=== PATIENT | male | born 1975 | race Caucasian/White ===

== ENCOUNTER 2016-11-18 16:58 | Emergency (ER) | payer MEDICAID, OTHER ==
[2016-11-18 17:16] VITALS: BP 151/88
--- NOTE | 2016-11-18 17:42 | UC ---
Cardiac HPI - History of Current Complaint Chief Complaint: UCChestPain Stated Complaint: CHEST PAIN Time Seen by Provider: 11/18/16 17:35 - Allergy/Home Medications Allergies/Adverse Reactions: Allergies Allergy/AdvReac Type Severity Reaction Status Date / Time Menthol Allergy Intermediate Swelling Verified 01/30/15 20:19 PMH/Surg Hx/FS Hx/Imm Hx Endocrine History Of: Denies: Diabetes, Thyroid Disease Cardiovascular History Of: Denies: Cardiac Disorders, Hypertension Respiratory History Of: Reports: Bronchitis Denies: COPD, Asthma GI/ History Of: Denies: Ulcer - Surgical History Surgical History: Yes Surgery Procedure, Year, and Place: APPENDECTOMY - Social History Alcohol Use: Rare Substance Use Type: None Substance Use Comment - Amount & Last Used: 01/29/15 Smoking Status (MU): Heavy Every Day Tobacco Smoker Type: Cigarettes Physical Exam Vital Signs: Initial Vital Signs Temp 98.7 F 11/18/16 17:11 Pulse 93 11/18/16 17:11 Resp 18 11/18/16 17:11 BP 151/88 11/18/16 17:11 Pulse Ox 97 11/18/16 17:11
--- NOTE | 2016-11-18 17:47 | UC ---
Abdominal Pain Male HPI - HPI Summary HPI Summary: The patient comes in today for: 1. Epigastric pain: Onset: 3 days ago. Palliative/provocative: Nothing makes the pain better or worse. Quality: Dull throbbing. But, it can also be a sharp pain. HE states at times it is "unbearable." Region: Epigastric pain with radiation to the back. "It feels like the muscles in my back are tight." He also states that this pain will radiate into the left chest and in the left neck. He states that this pain also radiates into the left arm. Severity: 10 Time: Constant. Associated symptoms: Fevers: NOne. Vomiting: None. Heart disease: None with him. CAD risk factors: Smoker: (+), HTN: (-), DM (-), Fm Hx (-), Cholesterol: (?) , Previous disease: (-) Nausea: None. Diaphoresis: (+) * - History of Current Complaint Chief Complaint: UCChestPain Stated Complaint: CHEST PAIN Time Seen by Provider: 11/18/16 17:35 Hx Obtained From: Patient, Family/Food Packer - Allergies/Home Medications Allergies/Adverse Reactions: Allergies Allergy/AdvReac Type Severity Reaction Status Date / Time Menthol Allergy Intermediate Swelling Verified 01/30/15 20:19 PMH/Surg Hx/FS Hx/Imm Hx Previously Healthy: No Endocrine History Of: Denies: Diabetes, Thyroid Disease, Hyperthyroidism, Hypothyroidism, Dyslipidemia Cardiovascular History Of: Denies: Cardiac Disorders, Hypertension, Pacemaker/ICD, Myocardial Infarction , Congestive Heart Failure, Atrial Fibrillation, Deep Vein Thrombosis, Bleeding Disorders Respiratory History Of: Reports: Bronchitis Denies: COPD, Asthma GI/ History Of: Denies: Gastroesophageal Reflux, Ulcer, Gastrointestinal Bleed, Gall Bladder Disease, Kidney Stones, Diverticulitis, Renal Disease, Urosepsis Neurological History Of: Denies: TIA, CVA, Dementia, Seizures, Migraine Psychological History Of: Denies: Anxiety, Depression, Bipolar Disorder, Schizophrenia, Post Traumatic Stress Disorder Cancer History Of: Denies: Lung Cancer, Colorectal Cancer, Breast Cancer, Prostate Cancer, Cervical Cancer Other History Of: Negative For: HIV, Hepatitis B, Hepatitis C, Anticoagulant Therapy - Surgical History Surgical History: Yes Surgery Procedure, Year, and Place: APPENDECTOMY - Family History Known Family History: Positive: Cardiac Disease, Hypertension, Diabetes - Social History Occupation: Employed Full-time Alcohol Use: Rare Substance Use Type: None Substance Use Comment - Amount & Last Used: 01/29/15 Smoking Status (MU): Heavy Every Day Tobacco Smoker Type: Cigarettes Review of Systems Constitutional: Negative Skin: Negative Eyes: Negative ENT: Negative Respiratory: Negative Cardiovascular: Chest Pain Gastrointestinal: Abdominal Pain Genitourinary: Negative All Other Systems Reviewed And Are Negative: Yes Physical Exam Triage Information Reviewed: Yes Appearance: Well-Appearing, Well-Nourished, Pain Distress - He will hold his epigastric area and is not able to find a persistent comfortable area on the room cot. Vital Signs: Initial Vital Signs Temp 98.7 F 11/18/16 17:11 Pulse 93 11/18/16 17:11 Resp 18 11/18/16 17:11 BP 151/88 11/18/16 17:11 Pulse Ox 97 11/18/16 17:11 Vital Signs Reviewed: Yes Eyes: Positive: Conjunctiva Clear. Negative: Discharge ENT: Positive: Hearing grossly normal. Negative: Pharyngeal erythema, Nasal congestion, Nasal drainage, TM bulging, TM dull, TM red, Tonsillar swelling, Tonsillar exudate Dental: Negative: Gross Decay/Caries @, Dental Fracture @ Neck: Positive: Supple, Nontender, No Lymphadenopathy. Negative: Nuchal Rigidity Respiratory: Positive: Lungs clear, No respiratory distress, No accessory muscle use. Negative: Crackles, Wheezing Cardiovascular: Positive: RRR, No Murmur Abdomen Description: Positive: No Organomegaly, Soft, Peritoneal Signs. Negative: Nontender - There is tenderness to palpation of the epigastric area with rebound and percussion tenderness., Distended, Guarding, McBurney's Point Tenderness Musculoskeletal: Positive: Strength Intact, ROM Intact Neurological: Positive: Alert, Muscle Tone Normal Psychological: Positive: Normal Response To Family, Age Appropriate Behavior, Consolable Skin: Negative: rashes, breakdown Diagnostics - Laboratory Diagnostic Studies Completed/Ordered: EKG: Rate: 70. Rhythm: Sinus. Ectopy: None. Acute changes: None. Abd Pain Male Course/Dx - Course Course Of Treatment: Patient was told that we are not able to do the testing needed to figure out the causes of his chest and abdominal pain. HE was recommended to go to the ER at [facility]. He and his agreed to go via private car. - Differential Dx/Clinical Impression Provider Diagnoses: ABdominal pain. Chest pain - Physician Notification/Consults Discussed Patient Care With: Dr. Chacko Time Discussed With Above Provider: 18:03 Discharge - Discharge Plan Condition: Stable Disposition: HOME Additional Instructions: Please go directly to the ER at [facility].
== END 2016-11-18 18:14 | disposition left against medical advice (07) ==
LOC: UCEAST 16:58
DX: R10.13 Epigastric pain (principal); R07.9 Chest pain, unspecified; F17.210 Nicotine dependence, cigarettes, uncomplicated
CPT/HCPCS: 93005; 99212; G0463

== ENCOUNTER 2016-11-18 18:22 | Emergency (ER) | payer MEDICAID ==
[2016-11-18] MEDS ORDERED: Pantoprazole IV* 40 MG IV ONE (18:52)
[2016-11-18] MEDS ORDERED: Sucralfate TAB* 1 GM PO ONE (18:52)
[2016-11-18 19:00] LABS: Hematocrit 43 % (42-52); Mean Corpuscular HGB Conc 35 g/dl (31-36); Mean Corpuscular Hemoglobin 30 pg (27-31); Mean Corpuscular Volume 86 fL (80-94); Mean Platelet Volume 7 um3 (7.4-10.4); Red Blood Count 5.05 10^6/ul (4.0-5.4); Red Cell Distribution Width 13 % (10.5-15); White Blood Count 8.9 10^3/ul (3.5-10.8)
[2016-11-18 19:13] LABS: Albumin 4.1 g/dL (3.2-5.2); BUN/Creatinine Ratio 16.5 (8-20); C Reactive Protein 10.81 mg/L (< 5.00); Calcium 9.2 mg/dL (8.6-10.3); EGFR African American 138.3 (>60); EGFR Non-African American 107.6 (>60); Globulin 2.7 g/dL (2-4); Potassium 3.9 mmol/L (3.5-5.0); Total Bilirubin 0.3 mg/dL (0.2-1.0); Total Protein 6.8 g/dL (6.4-8.9)
--- NOTE | 2016-11-18 19:22 | RAD ---
INDICATION: Chest pain COMPARISON: None TECHNIQUE: An AP portable view obtained at 1905 hours is submitted. FINDINGS: Bones/Soft Tissues: There are no acute bony findings. Cardiomediastinal: The cardiomediastinal silhouette is normal. Lungs: There are no infiltrates. Pleura: There are no pleural effusions. Other: None IMPRESSION: NORMAL CHEST.
[2016-11-18 20:13] LABS: Urine Bilirubin Negative (Negative); Urine Glucose Negative (Negative); Urine Nitrite Negative (Negative)
[2016-11-18 21:03] VITALS: BP 121/77
--- NOTE | 2016-11-20 20:27 | ED ---
Emily Lorenzo Alok, scribed for Neftaly Chacko MD on 11/18/16 at 1845 . HPI Chest Pain - HPI Summary HPI Summary: 41 y/o male presents to the ED and c/o CP beginning 3 days ago. CP is described as dull and radiates up the left side of chest to armpit and neck. This pain waxes and wanes in intensity and does not better/worsen while at rest or with movement. Pain is accompanied by a tightness in his left arm and a loss of appetite for the past 3 days. Pt also notes left sided epigastric pain as well as SOB on exertion. Pt denies any nausea or fever and states that his BM and fluid intake have been normal. Pt took one Tylenol MACHINE WHITENER to no effect. - History of Current Complaint Chief Complaint: EDChestPainROMI Time Seen by Provider: 11/18/16 18:34 Hx Obtained From: Patient Onset/Duration: Started Days Ago, Atraumatic, Still Present Timing: Constant Initial Severity: Moderate Current Severity: Moderate Pain Intensity: 5 Pain Scale Used: 0-10 Numeric Chest Pain Location: Left Anterior Chest Pain Radiates: Yes Chest Pain Radiates To:: Arm, Neck, Epigastric Character: Dull/Aching Aggravating Factor(s): Nothing Alleviating Factor(s): Nothing Associated Signs and Symptoms: Positive: Chest Pain, Tingling, Shortness of Breath, Abdominal Pain - left side epigastric. Negative: Fever, Nausea - Allergy/Home Medications Allergies/Adverse Reactions: Allergies Allergy/AdvReac Type Severity Reaction Status Date / Time Menthol Allergy Intermediate Swelling Verified 11/18/16 18:32 PMH/Surg Hx/FS Hx/Imm Hx Endocrine/Hematology History: Denies: Hx Anticoagulant Therapy, Hx Diabetes, Hx Thyroid Disease Cardiovascular History: Denies: Hx Congestive Heart Failure, Hx Deep Vein Thrombosis, Hx Hypertension , Hx Myocardial Infarction, Hx Pacemaker/ICD Respiratory History: Denies: Hx Asthma, Hx Chronic Obstructive Pulmonary Disease (COPD), Hx Lung Cancer GI History: Denies: Hx Gall Bladder Disease, Hx Gastrointestinal Bleed, Hx Ulcer, Hx Urosepsis History: Denies: Hx Kidney Stones, Hx Renal Disease Neurological History: Denies: Hx Dementia, Hx Migraine, Hx Seizures, Hx Transient Ischemic Attacks (TIA) Psychiatric History: Denies: Hx Anxiety, Hx Depression, Hx Schizophrenia, Hx Bipolar Disorder - Surgical History Surgery Procedure, Year, and Place: APPENDECTOMY Infectious Disease History: No Infectious Disease History: Denies: Hx Hepatitis, Hx Human Immunodeficiency Virus (HIV), Traveled Outside the [place] in Last 30 Days - Family History Known Family History: Positive: Cardiac Disease, Hypertension, Diabetes - Social History Occupation: Employed Full-time Lives: With Family - Alcohol Use: Rare Substance Use Type: Reports: None Substance Use Comment - Amount & Last Used: 01/29/15 Smoking Status (MU): Heavy Every Day Tobacco Smoker Type: Cigarettes Review of Systems Negative: Fever Positive: Chest Pain Positive: Shortness Of Breath - On exertion Positive: Abdominal Pain - left side epigastric, Nausea All Other Systems Reviewed And Are Negative: Yes Physical Exam Triage Information Reviewed: Yes Vital Signs On Initial Exam: Initial Vitals Temp Pulse Resp BP Pulse Ox 98.1 F 84 20 131/90 98 11/18/16 18:32 11/18/16 18:32 11/18/16 18:32 11/18/16 18:32 11/18/16 18:32 Vital Signs Reviewed: Yes Appearance: Positive: Well-Appearing, No Pain Distress Skin: Positive: Warm, Skin Color Reflects Adequate Perfusion, Dry Head/Face: Positive: Normal Head/Face Inspection Eyes: Positive: Normal ENT: Positive: Normal ENT inspection Neck: Positive: Supple, Nontender Respiratory/Lung Sounds: Positive: Clear to Auscultation, Breath Sounds Present Cardiovascular: Positive: RRR Abdomen Description: Positive: Soft, Other: - Left sided epigastric tenderness to palpation Bowel Sounds: Positive: Present Musculoskeletal: Positive: Normal Neurological: Positive: Normal Psychiatric: Positive: Normal, Affect/Mood Appropriate Diagnostics - Vital Signs Vital Signs Temp Pulse Resp BP Pulse Ox 11/18/16 18:32 98.1 F 84 20 131/90 98 - Laboratory Lab Results: Lab Results 11/18/16 11/18/16 11/18/16 Range/Units 18:44 18:44 18:44 WBC 8.9 (3.5-10.8) 10^3/ul RBC 5.05 (4.0-5.4) 10^6/ul Hgb 15.0 (14.0-18.0) g/dl Hct 43 (42-52) % MCV 86 (80-94) fL MCH 30 (27-31) pg MCHC 35 (31-36) g/dl RDW 13 (10.5-15) % Plt Count 225 (150-450) 10^3/ul MPV 7 L (7.4-10.4) um3 Neut % (Auto) 57.8 (38-83) % Lymph % (Auto) 33.2 (25-47) % [place] % (Auto) 7.3 (1-9) % Eos % (Auto) 1.2 (0-6) % Baso % (Auto) 0.5 (0-2) % Absolute Neuts (auto) 5.1 (1.5-7.7) 10^3/ul Absolute Lymphs (auto) 3.0 (1.0-4.8) 10^3/ul Absolute Monos (auto) 0.6 (0-0.8) 10^3/ul Absolute Eos (auto) 0.1 (0-0.6) 10^3/ul Absolute Basos (auto) 0 (0-0.2) 10^3/ul Absolute Nucleated RBC 0 10^3/ul Nucleated RBC % 0 INR (Anticoag Therapy) 0.89 (0.89-1.11) Sodium 135 (133-145) mmol/L Potassium 3.9 (3.5-5.0) mmol/L Chloride 104 (101-111) mmol/L Carbon Dioxide 25 (22-32) mmol/L Anion Gap 6 (2-11) mmol/L BUN 13 (6-24) mg/dL Creatinine 0.79 (0.67-1.17) mg/dL Est GFR ( Amer) 138.3 (>60) Est GFR (Non-Af Amer) 107.6 (>60) BUN/Creatinine Ratio 16.5 (8-20) Glucose 111 H (70-100) mg/dL Lactic Acid (0.5-2.0) mmol/L Calcium 9.2 (8.6-10.3) mg/dL Total Bilirubin 0.30 (0.2-1.0) mg/dL AST 15 (13-39) U/L ALT 37 (7-52) U/L Alkaline Phosphatase 59 (34-104) U/L Troponin I 0.00 (<0.04) ng/mL C-Reactive Protein 10.81 H (< 5.00) mg/L Total Protein 6.8 (6.4-8.9) g/dL Albumin 4.1 (3.2-5.2) g/dL Globulin 2.7 (2-4) g/dL Albumin/Globulin Ratio 1.5 (1-3) Lipase 20 (11.0-82.0) U/L Urine Color Urine Appearance Urine pH (5-9) Ur Specific [place] (1.010-1.030) Urine Protein (Negative) Urine Ketones (Negative) Urine Blood (Negative) Urine Nitrate (Negative) Urine Bilirubin (Negative) Urine Urobilinogen (Negative) Ur Leukocyte Esterase (Negative) Urine Glucose (Negative) 11/18/16 11/18/16 Range/Units 18:44 20:00 WBC (3.5-10.8) 10^3/ul RBC (4.0-5.4) 10^6/ul Hgb (14.0-18.0) g/dl Hct (42-52) % MCV (80-94) fL MCH (27-31) pg MCHC (31-36) g/dl RDW (10.5-15) % Plt Count (150-450) 10^3/ul MPV (7.4-10.4) um3 Neut % (Auto) (38-83) % Lymph % (Auto) (25-47) % [place] % (Auto) (1-9) % Eos % (Auto) (0-6) % Baso % (Auto) (0-2) % Absolute Neuts (auto) (1.5-7.7) 10^3/ul Absolute Lymphs (auto) (1.0-4.8) 10^3/ul Absolute Monos (auto) (0-0.8) 10^3/ul Absolute Eos (auto) (0-0.6) 10^3/ul Absolute Basos (auto) (0-0.2) 10^3/ul Absolute Nucleated RBC 10^3/ul Nucleated RBC % INR (Anticoag Therapy) (0.89-1.11) Sodium (133-145) mmol/L Potassium (3.5-5.0) mmol/L Chloride (101-111) mmol/L Carbon Dioxide (22-32) mmol/L Anion Gap (2-11) mmol/L BUN (6-24) mg/dL Creatinine (0.67-1.17) mg/dL Est GFR ( Amer) (>60) Est GFR (Non-Af Amer) (>60) BUN/Creatinine Ratio (8-20) Glucose (70-100) mg/dL Lactic Acid 0.6 (0.5-2.0) mmol/L Calcium (8.6-10.3) mg/dL Total Bilirubin (0.2-1.0) mg/dL AST (13-39) U/L ALT (7-52) U/L Alkaline Phosphatase (34-104) U/L Troponin I (<0.04) ng/mL C-Reactive Protein (< 5.00) mg/L Total Protein (6.4-8.9) g/dL Albumin (3.2-5.2) g/dL Globulin (2-4) g/dL Albumin/Globulin Ratio (1-3) Lipase (11.0-82.0) U/L Urine Color Yellow Urine Appearance Clear Urine pH 5.0 (5-9) Ur Specific [place] 1.028 (1.010-1.030) Urine Protein Negative (Negative) Urine Ketones Negative (Negative) Urine Blood Negative (Negative) Urine Nitrate Negative (Negative) Urine Bilirubin Negative (Negative) Urine Urobilinogen Negative (Negative) Ur Leukocyte Esterase Negative (Negative) Urine Glucose Negative (Negative) Result Diagrams: 11/18/16 18:44 11/18/16 18:44 Lab Statement: Any lab studies that have been ordered have been reviewed, and results considered in the medical decision making process. - Radiology CXR Xray Interpretation: Positive (See Comments) Radiology Interpretation Completed By: Radiologist - EKG 1826 Cardiac Rate: NL EKG Rhythm: Sinus Rhythm - 78 bpm Chest Pain Course/Dx - Course Course Of Treatment: Mr. Crisostomo presented with 3 days of CP/Epigastric pain and ruled out for ACS etc. He improved with GI meds. - Diagnoses Provider Diagnoses: Epigastric abdominal pain Discharge - Discharge Plan Condition: Stable Disposition: HOME Prescriptions: Omeprazole CAP* [Prilosec CAP* 20 MG] 20 mg PO BID #20 cap. Sucralfate TAB* [Carafate*] 1 gm PO QID #40 tab Patient Education Materials: Epigastric Pain (ED) Referrals: Bryn Dee MD [Primary Care Provider] - Additional Instructions: Please follow up with Dr. Dee later this week The documentation as recorded by the Emily soto Alok accurately reflects the service I personally performed and the decisions made by me, Neftaly Chacko MD.
== END 2016-11-18 21:01 | disposition home or self-care (01) ==
LOC: ED 18:22
DX: R07.9 Chest pain, unspecified (principal); R06.2 Wheezing; R10.13 Epigastric pain
CPT/HCPCS: 36415; 71010; 80053; 81003; 83605; 83690; 84484; 85025; 85610; 86140; 93005; 96365; 99283; A9270-GY

== ENCOUNTER → 2017-10-13 17:31 | Emergency (ER) | payer OTHER ==
[2017-10-13 21:20] VITALS: BP 0/0
== END | disposition left against medical advice (07) ==
LOC: ED 17:31
DX: R10.9 Unspecified abdominal pain (principal); Z53.21 Procedure and treatment not carried out due to patient leaving prior to being seen by health care provider

== ENCOUNTER 2018-10-17 17:22 | Emergency (ER) | payer OTHER ==
[2018-10-17] MEDS ORDERED: Nitroglycerin TAB 0.4 MG* 0.4 MG TAB SL ONE (18:16)
--- NOTE | 2018-10-17 18:19 | ED ---
Palpitations / Dysrhythmia - HPI Summary HPI Summary: A 43 y/o male presents to the ED c/o chest pain. In the ED room, the patient has a pulse of 92 BPM, respiratory rate of 18, and blood pressure of 125/70. As per triage, "Patient was at home when he felt his heart start to beat quickly. Patient put his wifes fitbit on his wrist and it told him his HR was 160-170's, patient states it stayed this way for about 10 minutes and he was shakey and his finger tips went numb". According to the patient, he was at home completing activities when he started feeling lightheaded. He stated that he obtained his 's apple watch and found that his HR was 170 BPM. He was trembling and diaphoretic. He experienced chest pain diffusely across his chest that radiating down his arm and up his neck. He noted that it was not extreme pain, but the pain experienced when you exercise. He stated that he felt weird and felt the need to stretch his arm. He stated that the pain lasted for 25 minutes , but he is not sure if the medications given in the ambulance helped. He stated that he was given meds, but he is not sure if it alleviated it. Patient drinks a lot of coffee (up to 3 pots), however, today and yesterday he has not because there was no sugar. No regular medications. No smoking or ETOH. - History of Current Complaint Chief Complaint: EDDysrhythmPalp Time Seen by Provider: 10/17/18 18:02 Hx Obtained From: Patient Onset/Duration: Sudden Onset, Lasting Minutes, Resolved Timing: Constant Severity Currently: None Character: Pounding Aggravating: Nothing Alleviating: Nothing Associated Signs & Symptoms: Lightheadedness, Chest Pain, Diaphoresis - Allergy/Home Medications Allergies/Adverse Reactions: Allergies Allergy/AdvReac Type Severity Reaction Status Date / Time menthol Allergy Hives Verified 10/17/18 19:04 PMH/Surg Hx/FS Hx/Imm Hx Endocrine/Hematology History: Denies: Hx Anticoagulant Therapy, Hx Diabetes, Hx Thyroid Disease Cardiovascular History: Denies: Hx Congestive Heart Failure, Hx Deep Vein Thrombosis, Hx Hypertension , Hx Myocardial Infarction, Hx Pacemaker/ICD Respiratory History: Denies: Hx Asthma, Hx Chronic Obstructive Pulmonary Disease (COPD), Hx Lung Cancer GI History: Denies: Hx Gall Bladder Disease, Hx Gastrointestinal Bleed, Hx Ulcer, Hx Urosepsis History: Denies: Hx Kidney Stones, Hx Renal Disease Neurological History: Denies: Hx Dementia, Hx Migraine, Hx Seizures, Hx Transient Ischemic Attacks (TIA) Psychiatric History: Denies: Hx Anxiety, Hx Depression, Hx Schizophrenia, Hx Bipolar Disorder - Surgical History Surgery Procedure, Year, and Place: APPENDECTOMY Infectious Disease History: No Infectious Disease History: Denies: Hx Hepatitis, Hx Human Immunodeficiency Virus (HIV), Traveled Outside the [place] in Last 30 Days - Family History Known Family History: Positive: Cardiac Disease, Hypertension, Diabetes - Social History Alcohol Use: Rare Substance Use Type: Reports: Marijuana Substance Use Comment - Amount & Last Used: 01/29/15 Smoking Status (MU): Heavy Every Day Tobacco Smoker Type: Cigarettes Review of Systems Positive: Skin Diaphoresis. Negative: Fever, Chills Negative: Erythema Negative: Sore Throat Positive: Chest Pain Negative: Shortness Of Breath Negative: Abdominal Pain, Vomiting, Nausea Negative: dysuria, hematuria Negative: Myalgia, Edema Negative: Rash Neurological: Other - NEGATIVE: DIZZINESS; POSITIVE: LIGHTHEADEDNESS All Other Systems Reviewed And Are Negative: Yes Physical Exam - Summary Physical Exam Summary: Constitutional: Well-developed, Well-nourished, Alert. (-) Distressed Skin: Warm, Dry HENT: Normocephalic; Atraumatic Eyes: Conjunctiva normal Neck: Musculoskeletal ROM normal neck. (-) JVD, (-) Stridor, (-) Tracheal deviation Cardio: Rhythm regular, rate normal, Heart sounds normal; Intact distal pulses; The pedal pulses are 2+ and symmetric. Radial pulses are 2+ and symmetric. (-) Murmur Pulmonary/Chest wall: Effort normal. (-) Respiratory distress, (-) Wheezes, (-) Rales Abd: Soft, (-) epigastric tenderness, (-) Distension, (-) Guarding, (-) Rebound Musculoskeletal: (-) Edema Lymph: (-) Cervical adenopathy Neuro: Alert, Oriented x3 Psych: Mood and affect Normal Triage Information Reviewed: Yes Vital Signs On Initial Exam: Initial Vitals Temp Pulse Resp BP Pulse Ox 98.1 F 99 16 129/86 99 10/17/18 17:23 10/17/18 17:23 10/17/18 17:23 10/17/18 17:23 10/17/18 17:23 Vital Signs Reviewed: Yes Diagnostics - Vital Signs Vital Signs Temp Pulse Resp BP Pulse Ox 10/17/18 18:00 15 10/17/18 17:55 18 125/70 10/17/18 17:26 14 129/86 10/17/18 17:25 14 10/17/18 17:23 98.1 F 99 16 129/86 99 - Laboratory Result Diagrams: 10/17/18 18:43 10/17/18 18:43 Lab Statement: Any lab studies that have been ordered have been reviewed, and results considered in the medical decision making process. - Radiology CXR Radiology Interpretation Completed By: ED Physician - NO ACUTE DISEASE. PENDING OFFICAL REPORT. - EKG 1905 Cardiac Rate: NL - 78 BPM EKG Rhythm: Sinus Rhythm - 78 BPM Summary of EKG Findings: NEGATIVE STEMI. Re-Evaluation - Re-Evaluation First Eval Re-Evaluation Time: 18:10 Change: Unchanged Comment: TRYING TO OBTAIN RIBBON STRIP FROM [facility]. Second Eval Re-Evaluation Time: 21:12 Change: Unchanged Comment: It was discussed with the [facility] who stated that the monitor did not catch any a-fib. Third Eval Re-Evaluation Time: 21:26 Change: Unchanged Comment: We retrieved the scans from the [facility] and it revealed no A-fib. Course/Dx - Course Course Of Treatment: A 43 y/o male presents to the ED c/o chest pain. According to the patient, he was at home completing activities when he started feeling lightheaded. He stated that he obtained his 's apple watch and found that his HR was 170 BPM. He was trembling and diaphoretic. He experienced chest pain diffusely across his chest that radiating down his arm and up his neck. He noted that it was not extreme pain, but the pain experienced when you exercise. He stated that he felt weird and felt the need to stretch his arm. He stated that the pain lasted for 25 minutes, but he is not sure if the medications given in the ambulance helped. Physical examination findings were unremarkable. A CXR revealed no acute disease. An EKG revealed NSR of 78 BPM, negative STEMI. Hematology, coagulation, and Chemistry screens were done. No significant laboratory abnormalities were found except hyperglycemia of 108 mg/dL. In the ED course, the patient received NTG. It was discussed with the [facility] who stated that the monitor did not catch any a-fib. We retrieved the scans from the [facility] and it revealed no A-fib. Patient will be discharged with a diagnosis of SVT. Patient is to follow up with novelty dipper, Dr. Kojo Angel, in 2-3 days. Patient is to return to the ED for any new or worsening symptoms. Patient is agreeable with this plan. - Diagnoses Provider Diagnoses: SVT (supraventricular tachycardia) Discharge - Sign-Out/Discharge Documenting (check all that apply): Patient Departure - DISCHARGE - Discharge Plan Condition: Stable Disposition: HOME Patient Education Materials: Supraventricular Tachycardia (ED) Referrals: Bryn Dee MD [Primary Care Provider] - 3 Days Kojo Angel MD [Medical Doctor] - 3 Days Additional Instructions: FOLLOW UP WITH PRIMARY CARE IN 3 DAYS. FOLLOW UP WITH CARDIOLOGY IN 3 DAYS. RETURN TO THE ED FOR ANY NEW OR WORSENING SYMPTOMS. - Attestation Statements Document Initiated by Scribe: Yes Documenting Scribe: Gallo Martinez Provider For Whom Dustinibe is Documenting (Include Credential): Anders Pop MD Scribe Attestation: Gallo Lorenzo, scribed for Anders Pop MD on 10/17/18 at 2134. Status of Scribe Document: Ready
[2018-10-17 18:49] LABS: ABS Basophils 0 10^3/ul (0-0.2); ABS Eosinophils 0 10^3/ul (0-0.6); ABS Lymphocytes 1.7 10^3/ul (1.0-4.8); ABS Monocytes 0.6 10^3/ul (0-0.8); ABS Neutrophils 10.3 10^3/ul (1.5-7.7); ABS Nucleated RBC 0 10^3/ul; Eosinophil % 0.3 %; Hematocrit 43 % (42-52); Hemoglobin 14.9 g/dl (14.0-18.0); Lymphocyte % 13.6 %; Mean Corpuscular HGB Conc 34 g/dl (31-36); Mean Corpuscular Hemoglobin 30 pg (27-31); Mean Corpuscular Volume 86 fL (80-94); Mean Platelet Volume 7.2 fL (7.4-10.4); Nucleated Red Blood Cells % 0; Platelet Count 247 10^3/ul (150-450); Red Blood Count 5.03 10^6/ul (4.00-5.40); Red Cell Distribution Width 14 % (10.5-15); White Blood Count 12.8 10^3/ul (3.5-10.8)
[2018-10-17 19:29] LABS: Albumin 4.4 g/dL (3.2-5.2); Albumin/Globulin Ratio 1.8 (1-3); BUN/Creatinine Ratio 15.9 (8-20); Calcium 9.1 mg/dL (8.6-10.3); EGFR African American 113.8 (>60); EGFR Non-African American 94.1 (>60); Globulin 2.4 g/dL (2-4); Magnesium 1.8 mg/dL (1.9-2.7); Potassium 4.5 mmol/L (3.5-5.0); Total Bilirubin 0.3 mg/dL (0.2-1.0); Total Protein 6.8 g/dL (6.4-8.9)
[2018-10-17 19:38] LABS: T4, Total 10.16 g/dL (6.09-12.23)
[2018-10-17 19:42] LABS: TSH (Thyroid Stimulating Horm) 1.05 mcIU/mL (0.34-5.60)
[2018-10-17 22:27] VITALS: BP 125/79
== END 2018-10-17 22:26 | disposition home or self-care (01) ==
LOC: ED 17:22
DX: I47.1 Supraventricular tachycardia (principal); Z82.49 Family history of ischemic heart disease and other diseases of the circulatory system; Z83.3 Family history of diabetes mellitus; F17.210 Nicotine dependence, cigarettes, uncomplicated
CPT/HCPCS: 36415; 71046; 80053; 83605; 83735; 84436; 84443; 84484; 85025; 85379; 93005; 99283

== ENCOUNTER 2019-02-05 18:26 | Emergency (ER) | payer OTHER ==
--- OUTSIDE RECORDS SUMMARY | 2019-02-05 18:33 | XMS REPORT | Continuity of Care Document ---
:1975 External Reference #:[id number] Author Name Chato Del Cid M.D. Address [address] [place] [address] Care Team Providers Name Role Phone Bryn Dee MD Care Team Information Card Scraper Unavailable Bryn Dee MD Primary Care Physician Unavailable Payers Date Identification Numbers Payment Provider Subscriber Policy Number: [id number] [facility] Cristobal Crisostomo Group Number: [id number] [facility] Group Name: [id number] [place] [address] PayID: [id number] Policy Number: [id number] [facility] Cristobal Crisostomo PayID: [id number] [address] [place] [address] Advance Directives Description No Information Available Problems Description No Information Family History Date Family Member(s) Observation Comments General Cancer General Heart Attack General Migraine Social History Type Date Description Comments Sex Unknown Occupation [employer] Tobacco Use Start: Unknown Current Cigarette Smoker 30 year history 1/2 Pack Daily Tobacco Use Start: Unknown Current Cigar Smoker, Once a week. 10 Year Smokes An Occasional history Cigar Tobacco Use Start: Unknown Never Smoked A Pipe Smokeless Tobacco Former Tobacco Chewer 4 year history, quit age 34 ETOH Use Currently rarely consumes alcohol Tobacco Use Start: Unknown Patient is a current smoker, smokes every day Smoking Status Reviewed: 01/28/19 Patient is a current smoker, smokes every day Allergies, Adverse Reactions, Alerts Description No Known Drug Allergies Medications Active Medications SIG Qnty Indications Ordering Provider Date Aleve as needed Unknown 220mg Capsules Immunizations Description No Information Available Vital Signs Date Vital Result Comment 01/28/2019 1:43pm Weight 237.00 lb Weight 107.503 kg Height 71 inches 5'11" Height in cm's 180.3 cm BMI (Body Mass Index) 33.1 kg/m2 Results Description No Information Available Procedures Description No Information Available Encounters Description No Information Available Plan of Treatment 01/28/2019 - Chato Del Cid M.D.F45.8 Other somatoform disordersComments: The patient has had a sensation that there is a lump in his throat.His biggest concern is for throatcancer. I do not see any evidence of that on his ENT examination or his nasolaryngoscopy. I think heis having GERD with laryngopharyngeal reflux. There is some evidence of this in his posterior glottis. I showed him this on the video. He smokes which can make GERD worse, he also eats a lot of spicy foods. We discussed diet modification. He has Omeprazole at him that was prescribed previously. This is best taken on an empty stomach about 1/2 hour before a protein rich meal. He can also take a Zantac or TUMS before meals. He should not eat before going to bed.K21.9 Gastro -esophageal reflux disease without esophagitis
[2019-02-05 18:44] VITALS: BP 138/88
--- NOTE | 2019-02-05 19:11 | ED ---
Throat Pain/Nasal Congestion - HPI Summary HPI Summary: 43 yr old male with the complaint of right ear pain, sinus pressure, sinus pressure, post nasal drip, coughing. He had a tooth extracted a week ago, and then the next day developed runny nose and cough. He has had persistent symptoms but now has sinus and ear pain. - History of Current Complaint Chief Complaint: UCGeneralIllness Time Seen by Provider: 02/05/19 18:50 - Allergies/Home Medications Allergies/Adverse Reactions: Allergies Allergy/AdvReac Type Severity Reaction Status Date / Time bee venom protein (honey bee) Allergy Swelling Verified 02/05/19 18:45 Of Face,Lips,& Throat menthol Allergy Hives Verified 02/05/19 18:45 Home Medications: Home Medications Omeprazole CAP (NF) [Prilosec CAP* 20 MG] 20 mg PO DAILY WITH MEAL 02/05/19 [ History Confirmed 02/05/19] PMH/Surg Hx/FS Hx/Imm Hx Endocrine/Hematology History: Denies: Hx Anticoagulant Therapy, Hx Diabetes, Hx Thyroid Disease Cardiovascular History: Denies: Hx Congestive Heart Failure, Hx Deep Vein Thrombosis, Hx Hypertension , Hx Myocardial Infarction, Hx Pacemaker/ICD Respiratory History: Denies: Hx Asthma, Hx Chronic Obstructive Pulmonary Disease (COPD), Hx Lung Cancer GI History: Denies: Hx Gall Bladder Disease, Hx Gastrointestinal Bleed, Hx Ulcer, Hx Urosepsis History: Denies: Hx Kidney Stones, Hx Renal Disease Neurological History: Denies: Hx Dementia, Hx Migraine, Hx Seizures, Hx Transient Ischemic Attacks (TIA) Psychiatric History: Denies: Hx Anxiety, Hx Depression, Hx Schizophrenia, Hx Bipolar Disorder - Surgical History Surgery Procedure, Year, and Place: APPENDECTOMY. Mulitple R knee repairs Infectious Disease History: No Infectious Disease History: Denies: Hx Hepatitis, Hx Human Immunodeficiency Virus (HIV), Traveled Outside the [place] in Last 30 Days - Family History Known Family History: Positive: Cardiac Disease, Hypertension, Diabetes - Social History Occupation: Works From/At Home Lives: With Family Alcohol Use: None Substance Use Type: Reports: Marijuana Substance Use Comment - Amount & Last Used: 01/29/15 Smoking Status (MU): Heavy Every Day Tobacco Smoker Type: Cigarettes Amount Used/How Often: 1 ppd Review of Systems Constitutional: Negative Positive: Ear Ache, Nasal Discharge Positive: Cough All Other Systems Reviewed And Are Negative: Yes Physical Exam Triage Information Reviewed: Yes Vital Signs On Initial Exam: Initial Vitals Temp Pulse Resp BP Pulse Ox 98.1 F 96 16 138/88 98 02/05/19 18:37 02/05/19 18:37 02/05/19 18:37 02/05/19 18:37 02/05/19 18:37 Vital Signs Reviewed: Yes Appearance: Positive: Well-Appearing, No Pain Distress Skin: Positive: Warm, Skin Color Reflects Adequate Perfusion Head/Face: Positive: Normal Head/Face Inspection Eyes: Positive: EOMI, SILVANA ENT: Positive: Pharynx normal, Nasal congestion, Nasal drainage, TM red - right ear with redness, Sinus tenderness Neck: Positive: Nontender Respiratory/Lung Sounds: Positive: Clear to Auscultation, Breath Sounds Present Cardiovascular: Positive: RRR. Negative: Murmur Abdomen Description: Negative: Distended Musculoskeletal: Positive: Strength/ROM Intact Neurological: Positive: Sensory/Motor Intact, Alert, Oriented to Person Place, Time, CN Intact II-III, Normal Gait, Speech Normal Psychiatric: Positive: Normal Diagnostics - Vital Signs Vital Signs Temp Pulse Resp BP Pulse Ox 02/05/19 18:37 98.1 F 96 16 138/88 98 - Laboratory Lab Statement: Any lab studies that have been ordered have been reviewed, and results considered in the medical decision making process. EENT Course/Dx - Course Course Of Treatment: 43 yr old male with sinusitis. Rx augmentin - Diagnoses Provider Diagnoses: Sinusitis, Hypertension Discharge - Sign-Out/Discharge Documenting (check all that apply): Patient Departure All imaging exams completed and their final reports reviewed: No Studies - Discharge Plan Condition: Good Disposition: HOME Prescriptions: Amoxicillin/Clavulanate TAB* [Augmentin TAB 875*] 875 mg PO BID #20 tab Patient Education Materials: Sinusitis (ED), Hypertension (ED) Referrals: Bryn Dee MD [Primary Care Provider] - 1 Day - Billing Disposition and Condition Condition: GOOD Disposition: Home
== END 2019-02-05 19:04 | disposition home or self-care (01) ==
LOC: UCCORT 18:26
DX: J32.9 Chronic sinusitis, unspecified (principal); I10 Essential (primary) hypertension; R05 Cough; F17.210 Nicotine dependence, cigarettes, uncomplicated; Z91.030 Bee allergy status; Z91.048 Other nonmedicinal substance allergy status
CPT/HCPCS: 99212; G0463